=== PATIENT | male | born 1970 | race Caucasian/White ===

== ENCOUNTER 2017-12-17 10:19 | Emergency (ER) | payer BC, SELFPAY ==
[2017-12-17 10:20] VITALS: BP 158/92; PULSE 92; RESP 16; TEMP 36.2; O2SAT 97; BMI 30.3
--- NOTE | 2017-12-17 10:40 | EKG12_ITS ---
Test Reason : DIZZINESS Blood Pressure : / mmHG Vent. Rate : 082 BPM Atrial Rate : 082 BPM P-R Int : 144 ms QRS Dur : 102 ms QT Int : 392 ms P-R-T Axes : 022 007 029 degrees QTc Int : 457 ms Sinus rhythm with sinus arrhythmia with occasional Premature ventricular complexes Otherwise normal ECG Confirmed by AGUSTIN GARRETT, PADMINI ([id number]), editor school photograph SOWMYA LOPEZ ([id number]) on 12/19/2017 1:09:58 PM Referred By: ELZBIETA Confirmed By:PADMINI VELEZ MD
--- NOTE | 2017-12-17 10:44 | ED.DCSUM_ITS ---
- ER Visit Summary Date of Service: 12/17/17 Chief Complaint: Transient lightheadedness History of Present Illness: The patient is a 47 M treated for hypertension with lisinopril/hydrochlorothiazide once daily. Patient states today just felt lightheaded at work. Worse from going from a seated to a standing position and it seemed to be getting better. He denies any headache. He denies any chest pain or shortness of breath. He denies any recent head trauma. He is on no blood thinners. He denies any other neurological symptoms. No change in his vision or speech. No trouble using his arms or legs. No trouble with his balance or walking. He did take his blood pressure work and thought it was around 150s over about 99. He said normally does not run that high. Physical Examination: Well-appearing middle-age male. Vital signs are stable afebrile. Pulse ox 97% on room air no signs of hypoxia. His initial blood pressure is 158/92. He does not look septic or toxic. He is in no acute distress. He is speaking easily. H EENT exam is unremarkable. Pupils round reactive light. Extra motions intact. No facial droop. Tongue is midline. Normal speech. No signs of trauma. Neck nontender. No lymphadenopathy. Lungs clear to auscultation bilaterally. Heart regular rate and rhythm no murmur. Abdomen soft nontender. No peritoneal signs. He is moving all 4 extremities. They are neurovascularly intact. 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 Dorsi plantar flexion intact. Normal motor strength and sensation of both upper and lower extremities. Normal range of motion of both upper and lower extremities bilaterally. Neurologically is awake and alert without any focal motor or sensory deficits. NIH score is 0. Get up and ambulate without any difficulty. No ataxia. Fingertip to nose and heel to carter all within normal limits. Test Results: Negative. His blood pressures remained 150s and 160s systolically over 80s and 90s. EKG sinus rhythm rate 82 with a few PVCs but otherwise no acute abnormality. No signs of ischemia. Emergency Department Course and Treatment: His clinical exam is basically normal. With a normal neurologic exam. Obtain orthostatic vital vital signs and EKG. Clinically I do not think he needs other labs nor does he need a CT. Treatment Plan: Repeat exam at 1130 he is doing well. Exam remains normal. Patient denied discussed treatment options. He has been logging his blood pressure the last week it is been running higher than normal. For that reason we will increase his lisinopril to 1 pill twice a day. He will continue to log his blood pressures and follow-up with his primary care physician Dr. Frederick Cheema. Disposition: Discharge Impression: Transient lightheadedness resolved Acute on chronic hypertension This note was generated with [employer] dictation software. It may contain incorrect words, spelling, and punctuation that were not noted in review of the chart prior to signing ED Disposition - Plan for ED Patient: Chief Complaint: Dizziness Referrals: Frederick Cheema III, MD [Primary Care Provider] -
--- NOTE | 2017-12-17 10:46 | NURSING ---
NO OLD EKGS
[2017-12-17 10:47] VITALS: BP 152/98; BP 157/99; BP 166/93; PULSE 84; PULSE 86; PULSE 90
--- NOTE | 2017-12-17 11:37 | ED.DEP ---
ED Disposition - Plan for ED Patient: Disposition: Home or Assisted Living Chief Complaint: Dizziness Instructions: ED Hypertension Conf Out Of Control Referrals: Frederick Cheema III, MD [Primary Care Provider] - 1-2 Weeks Additional Instructions: Increase your blood pressure medication to 1 pill twice a day instead of once a day. Continue to log your blood pressures. Call and will follow up with Frederick Cheema for repeat evaluation of your blood pressure readings and medication adjustments.
[2017-12-17 11:47] VITALS: BP 150/90; PULSE 88; RESP 18; O2SAT 100
== END 2017-12-17 11:47 | disposition home or self-care (01) ==
PROVIDERS: Emergency Provider Emergency Medicine; Family Provider Family Medicine; PCP Family Medicine
DX: R42 Dizziness and giddiness (principal); I10 Essential (primary) hypertension; I49.3 Ventricular premature depolarization; Z79.899 Other long term (current) drug therapy
CPT/HCPCS: 93005; 99283

== ENCOUNTER → 2019-03-15 | Outpatient (CLI) | payer BC, SELFPAY | END | disposition home or self-care (01) | LOC: PSN 11:20 | PROVIDERS: Family Provider Family Medicine; PCP Family Medicine; Referring Provider Family Medicine; Visit Provider Family Medicine | DX: R55 Syncope and collapse (principal) | CPT/HCPCS: 93225; 93226 ==

== ENCOUNTER 2022-01-27 09:13 | Emergency (ER) | payer OTHER, SELFPAY ==
[2022-01-27 09:14] VITALS: BP 157/99; PULSE 80; RESP 17; TEMP 35.8; O2SAT 96; BMI 33.5
--- NOTE | 2022-01-27 09:27 | EDS_ITS ---
HPI HPI - GI History of Present Illness Chief Complaint: Abd Pain Informant: patient Abdominal Pain/Flank Pain Onset: Today and Hours Context: Sudden Onset Timing: Intermittent Location: RUQ Current Severity: Gone Maximum Severity: Moderate Worsened by: Nothing Relieved by: Nothing Nausea/Vomiting/Emesis GI Symptom: Negative for Nausea and Vomiting Diarrhea/Melena/Hematochezia GI Symptom: Negative for Diarrhea, Melena and Hematochezia Associated Symptoms Associated Symptoms: Negative for Dysuria, Frequency, Hematuria and Urgency Narrative Narrative: 51-year-old male history of hypertension. Today before breakfast he started having some right upper quadrant abdominal pain. Lasted about 35 to 40 minutes. And now is resolved. He denies any recent nausea, vomiting diarrhea or fever. He denies any constipation nor any melena. He denies any dysuria or hematuria. Currently is pain-free. He states he is never had this pain before. Recently has been feeling fine. He denies any weight change. He has never had any abdominal surgeries. Prior similar symptoms: No Recent Illness/Hospitalization: No PFSH PFSH Medical History Hypertension Home Medications cholecalciferol (vitamin D3) [Vitamin D3] 2,000 unit PO DAILY 12/17/17 [History Last Taken 12/17/17 06:00] cetirizine [Zyrtec] 10 mg PO DAILY 01/27/22 [History Last Taken Unknown] hydrochlorothiazide 12.5 mg PO DAILY 01/27/22 [History Last Taken Unknown] losartan 50 mg PO DAILY 01/27/22 [History Last Taken Unknown] multivitamin 1 tab PO DAILY 01/27/22 [History Last Taken Unknown] Allergy/AdvReac Type Severity Reaction Status Date / Time Penicillins [PCN] Allergy Hives Verified 12/17/17 10:20 Social History Smoking Status: Never smoker ROS ROS ED ROS Narrative Abdominal pain resolved. Review of Systems ROS Unobtainable: Denies due to encephalopathy Constitutional Constitutional ED: Denies fever(s) ENT ENT ED: Denies ear pain Cardiovascular Cardiovascular: Denies chest pain Respiratory/Chest Respiratory/Chest: Denies dyspnea Gastrointestinal Gastrointestinal: Reports abdominal pain; Denies constipation, diarrhea, melena, nausea or vomiting Genitourinary Genitourinary ED: Denies dysuria Musculoskeletal Musculoskeletal: Denies myalgias Integumentary Denies rash Neurologic Neurologic: Denies headache(s) Psychiatric Psychiatric: Denies depression Endocrine Endocrinology: Denies polyuria Allergic/Immunologic Allergic/Immunologic ED: Denies urticaria EXAM Physical Exam Narrative Exam Narrative: Noise male no acute distress. Vital signs stable afebrile. Currently pain-free. H EENT exam unremarkable. Moist with membranes. Lungs clear to auscultation. Heart regular rhythm rate about 80 no murmur. Abdomen soft nondistended normal bowel sounds no peritoneal signs. Currently is completely pain-free. There is no right upper or right lower quadrant tenderness. There is no obstruction. There is no hernia or mass. There is no pulsatile mass. Back nontender. Moving all 4 extremities. No edema. Neurologically awake and alert. Normal exam. Const Vital Signs: 01/27/22 09:14 Temperature 96.5 F L Temperature Source Temporal Pulse Rate 80 Respiratory Rate 17 Blood Pressure 157/99 H Blood Pressure Mean 118 Pulse Ox 96 Oxygen Delivery Method Room Air Positive well nourished, well developed and obese; Negative for cachectic, contractures or unkempt General Appearance ED: well developed and NAD; Negative for unkempt, cachectic, contractures or pallor Nutritional Appearance: obese; Negative for cachectic HEENT Reports moist mucous membranes normocephalic and atraumatic; Negative for trauma or tenderness Eyes PERRL and EOMs intact bilaterally General Eye ED: Negative for pale conjunctiva or scleral icterus Neck no lymphadenopathy, supple and no JVD General: Negative for tenderness Resp normal respiratory effort and No clear to auscultation bilaterally Auscultation: Negative for rales or rhonchi Cardio regular rate, regular rhythm, S1 normal heart sound, S2 normal heart sound and no murmurs GI non-tender, non-distended and no masses Inspection: Negative for abdominal distention Auscultation: normoactive bowel sounds Palpation: soft; Negative for tender, guarding, rigid or rebound tenderness present Back/Spine no CVA tenderness General Back: Negative for CVA tenderness Cervical Spine: Negative for cervical spine tenderness Thoracic Spine / Upper Back: Negative for thoracic spinal tenderness Neuro moves all extremities Sensorium / Orientation: alert, oriented to person, oriented to place and oriented to time; Negative for orientation impaired, confused, lethargic or stuporous Motor Exam: strength 5/5 throughout Psych mental status grossly normal and thought process normal Appearance: Negative for unkempt Skin no wounds General Skin Exam: Negative for jaundice or pallor Lesions: no lesions and No lesion noted Rashes: no rashes and No rashes noted MDM MDM MDM Narrative Medical decision making narrative: 51-year-old male with right upper quadrant pain that is since resolved. His abdomen is completely benign and nontender. Screening labs will be obtained. At this time he does not need any medications or imaging. We will evaluate the labs and make further decisions. Repeat exam at 10:14 AM patient doing well. Pain-free. Abdominal exam nontender and benign. Discussed all test results with patient and his . He will do outpatient follow-up with his primary care physician. If he has recurrent pain he may need a right upper quadrant ultrasound to evaluate his gallbladder. Lab Data Attestation: I reviewed the patient's lab results. Lab results narrative: CBC normal white count 9 H&H 16 and 46. Normal platelets. Electrolytes unremarkable gap of 5. BUN of 21 creatinine 1.1. Liver enzymes are normal. Lipase is normal at 82. Glucose 140. Labs: Laboratory Results - last 24 hr 01/27/22 01/27/22 09:20 09:20 WBC 9.7 RBC 5.58 Hgb 16.3 Hct 46.9 MCV 84.1 MCH 29.2 MCHC 34.8 RDW Std Deviation 35.4 RDW Coeff of Marty 11.7 Plt Count 375 MPV 8.8 Immature Gran % (Auto) 0.300 Neut % (Auto) 53.7 Lymph % (Auto) 36.8 [place] % (Auto) 5.5 Eos % (Auto) 2.7 Baso % (Auto) 1.0 Absolute Neuts (auto) 5.2 Absolute Lymphs (auto) 3.57 Nucleated RBC % 0 Sodium 140 Potassium 3.5 Chloride 108 H Carbon Dioxide 27.0 Anion Gap 5 BUN 21 H Creatinine 1.16 Estim Creat Clear Calc 87.06 Est GFR (MDRD) Af Amer 86 Est GFR (MDRD) Non-Af 71 BUN/Creatinine Ratio 18.1 Glucose 140 H Calcium 9.2 Total Bilirubin 0.40 AST 21 ALT 45 Alkaline Phosphatase 85 Total Protein 7.7 Albumin 3.8 Globulin 3.9 Albumin/Globulin Ratio 1.0 Lipase 82 Discharge Plan Triage Chief Complaint: Abd Pain ED Provider: Rd [facility] Dx/Rx/DC Orders Clinical Impression: Abdominal pain Instructions: ED Abdominal Pain Unkn Cause Male... Prescriptions: No Action cholecalciferol (vitamin D3) [Vitamin D3] 2,000 UNIT capsule 2,000 unit PO DAILY RF: 0 losartan 50 mg tablet 50 mg PO DAILY RF: 0 hydrochlorothiazide 12.5 mg capsule 12.5 mg PO DAILY RF: 0 multivitamin Tablet 1 tab PO DAILY RF: 0 cetirizine [Zyrtec] 10 mg Tablet 10 mg PO DAILY RF: 0 Primary Care Provider: Claude Padilla Referrals: Claude Padilla MD [Primary Care Provider] - As Needed Activity Restrictions/Additional Instructions: Your exam and labs today were all normal. We do not have a specific cause for your pain it may or may not have been your gallbladder. If you have recurrent symptoms, pain follow-up with your doctor you may need a right upper quadrant or gallbladder ultrasound. If you develop severe pain, fever or feel worse can return to the emergency department. Disposition Disposition: Home, Self Care
[2022-01-27 09:35] LABS: Absolute Lymphocyte Count 3.57 X10^3/uL (0.83-4.51); Absolute Neutrophil Count 5.2 X10^3/uL (2.0-7.7); Eosinophil# 0.26 X10^3/uL; Eosinophils% 2.7 % (0-5); Hematocrit 46.9 % (40-54); Hemoglobin 16.3 g/dL (13.0-16.5); Lymphocyte # 3.57 X10^3/ul (0.83-4.51); Lymphocyte % 36.8 % (19-41); Mean Corp Hgb Conc 34.8 g/dL (32-36); Mean Corpuscular Hgb 29.2 pg (27.0-32.0); Mean Corpuscular Volume 84.1 fL (80-94); Mean Platelet Vol. 8.8 fl (6.2-12.0); Monocyte# 0.53 X10^3/uL; Monocyte% 5.5 % (0-10); NRBC Flagged by Analyzer 0 % (0-5); Neutrophil # 5.21 X10^3/uL (2.7-7.7); Neutrophil % 53.7 % (47-70); Platelet Count 375 K/mm3 (150-450); RBC Distribution Width CV 11.7 % (11.6-14.6); RBC Distribution Width SD 35.4 fl (35.1-43.9); Red Blood Count 5.58 M/mm3 (4.6-6.2); White Blood Count 9.7 K/mm3 (4.4-11.0)
[2022-01-27 10:03] LABS: AST(SGOT) 21 U/L (15-37); Alanine Aminotransfer ALT/SGPT 45 U/L (16-61); Albumin, Serum 3.8 g/dL (3.2-5.0); Alkaline Phosphatase 85 U/L (45-117); Anion Gap 5 (5-15); BUN 21 mg/dL (7-18); BUN/Creat Ratio 18.1 RATIO (10-20); Calcium,Total 9.2 mg/dL (8.5-10.1); Chloride 108 mmol/L (98-107); Creatinine, Serum 1.16 mg/dL (0.70-1.30); EST Glomerular Filtration Rate 71 mL/min (>60); Est Glom Filt Rate - Afr Amer 86 mL/min (>60); Estimated Creatinine Clearance 87.06 ml/min; Globulin 3.9 g/dL (2.2-4.2); Glucose 140 mg/dL (74-106); Lipase 82 U/L (73-393); Potassium 3.5 mmol/L (3.5-5.1); Protein, Total 7.7 g/dL (6.4-8.2); Sodium Level 140 mmol/L (136-145)
[2022-01-27 10:23] VITALS: BP 130/90; PULSE 72; RESP 18; O2SAT 98
== END 2022-01-27 10:24 | disposition home or self-care (01) ==
PROVIDERS: Emergency Provider Emergency Medicine; PCP Family Medicine; Visit Provider Emergency Medicine
DX: R10.11 Right upper quadrant pain (principal); I10 Essential (primary) hypertension; Z79.899 Other long term (current) drug therapy
CPT/HCPCS: 80053; 83690; 85025; 99283

== ENCOUNTER 2022-01-31 08:21 | Emergency (ER) | payer OTHER, SELFPAY ==
[2022-01-31 08:22] VITALS: BP 152/110; PULSE 80; RESP 18; TEMP 36.5; O2SAT 99; BMI 32.3
--- NOTE | 2022-01-31 09:47 | EDS_ITS ---
HPI HPI - GI History of Present Illness Chief Complaint: Abd Pain Informant: patient Abdominal Pain/Flank Pain Onset: Today Context: Sudden Onset Timing: Continuous Quality: Aching Location: RLQ Worsened by: Nothing Relieved by: Nothing Nausea/Vomiting/Emesis GI Symptom: Positive for Nausea; Negative for Vomiting Diarrhea/Melena/Hematochezia GI Symptom: Negative for Diarrhea, Melena and Hematochezia Associated Symptoms Associated Symptoms: Negative for Dysuria, Frequency and Hematuria Narrative Narrative: Patient presents with abdominal pain that began today. Patient states it began rather suddenly. Patient states it is constant. Patient describes the pain as aching. Patient states the pain is over the right lower quadrant area. Patient states nothing makes it better nothing makes it worse. Patient states he is unable to find a position of comfort. Patient admits to nausea but denies any vomiting. Patient denies any diarrhea or melena or hematochezia. Patient denies any dysuria or hematuria. Patient admits to subjective fevers. Patient denies any back or flank pain. PFSH PFSH Medical History Hypertension Home Medications cholecalciferol (vitamin D3) [Vitamin D3] 2,000 unit PO DAILY 12/17/17 [History Last Taken 12/17/17 06:00] cetirizine [Zyrtec] 10 mg PO DAILY 01/27/22 [History Last Taken Unknown] hydrochlorothiazide 12.5 mg PO DAILY 01/27/22 [History Last Taken Unknown] losartan 50 mg PO DAILY 01/27/22 [History Last Taken Unknown] multivitamin 1 tab PO DAILY 01/27/22 [History Last Taken Unknown] hydrocodone-acetaminophen 1 tab PO Q6H PRN PRN 3 Days #10 tablet 01/31/22 [Rx Last Taken Unknown] Allergy/AdvReac Type Severity Reaction Status Date / Time Penicillins [PCN] Allergy Hives Verified 01/31/22 08:24 Social History Smoking Status: Never smoker ROS ROS ED Constitutional Constitutional ED: Reports fever(s) and subjective; Denies chills Eyes Eyes: Denies blurry vision or change in vision ENT ENT ED: Denies rhinorrhea or sore throat Cardiovascular Cardiovascular: Denies chest pain or palpitations Respiratory/Chest Respiratory/Chest: Denies cough or dyspnea Gastrointestinal Gastrointestinal: Reports abdominal pain and nausea; Denies diarrhea, melena or vomiting Genitourinary Genitourinary ED: Denies dysuria or hematuria Musculoskeletal Musculoskeletal: Denies back pain or neck pain Integumentary Denies abscess or rash Neurologic Neurologic: Denies headache(s) or weakness Allergic/Immunologic Allergic/Immunologic ED: Denies mouth swelling or urticaria EXAM Physical Exam Const Vital Signs: 01/31/22 08:22 01/31/22 11:19 Temperature 97.7 F L Temperature Source Temporal Pulse Rate 80 75 Respiratory Rate 18 18 Blood Pressure 152/110 H 161/98 H Blood Pressure Mean 124 119 Pulse Ox 99 99 Oxygen Delivery Method Nasal Cannula Room Air Positive well nourished and well developed General Appearance ED: well developed HEENT Reports moist mucous membranes Neck supple and no JVD Resp normal respiratory effort and clear to auscultation bilaterally Cardio regular rate, regular rhythm and no murmurs GI normal to inspection, nondistended, normoactive bowel sounds and non-distended Auscultation: normoactive bowel sounds Palpation: soft and tender RLQ; Negative for guarding or rebound tenderness present Extremity normal to inspection General Extremety ED: Negative for edema or tenderness General Extremity: Negative for edema Neuro oriented x3, CN's II-XII intact bilaterally and no sensory deficits noted Sensorium / Orientation: alert Motor Exam: strength 5/5 throughout Psych mental status grossly normal Skin no rashes or lesions noted MDM MDM MDM Narrative Medical decision making narrative: Patient was given IV fluids, morphine, and Zofran. CBC shows a mild leukocytosis of 12.1. Comprehensive metabolic profile shows a BUN of 20 and creatinine 1.34. Lipase was normal. Urinalysis does not show any evidence of urinary tract infection or hematuria. CT scan of the abdomen pelvis was obtained. There is a punctate calculus at the right ureterovesicular junction. There is right hydronephrosis and hydroureter. There is also some perinephric and perirenal stranding. Patient was advised of his findings. Patient was given a repeat dose of morphine. Patient was given a prescription for a short course of [place]. Patient was instructed to drink plenty of fluids. Patient was instructed to follow-up with his primary care ph ysician in 5 to 7 days. Patient understood and was agreeable with plan. All questions were answered. Lab Data Attestation: I reviewed the patient's lab results. Labs: Laboratory Results - last 24 hr 01/31/22 01/31/22 01/31/22 09:10 09:15 09:15 WBC 12.1 H RBC 5.71 Hgb 17.0 H Hct 48.0 MCV 84.1 MCH 29.8 MCHC 35.4 RDW Std Deviation 35.6 RDW Coeff of Marty 11.8 Plt Count 443 MPV 9.0 Immature Gran % (Auto) 0.500 Neut % (Auto) 76.7 H Lymph % (Auto) 16.6 L [place] % (Auto) 4.8 Eos % (Auto) 0.7 Baso % (Auto) 0.7 Absolute Neuts (auto) 9.3 H Absolute Lymphs (auto) 2.01 Nucleated RBC % 0 Sodium 137 Potassium 3.5 Chloride 104 Carbon Dioxide 29.0 Anion Gap 4 L BUN 20 H Creatinine 1.34 H Estim Creat Clear Calc 75.36 Est GFR (MDRD) Af Amer 73 Est GFR (MDRD) Non-Af 60 BUN/Creatinine Ratio 14.9 Glucose 148 H Calcium 9.7 Total Bilirubin 0.50 AST 27 ALT 49 Alkaline Phosphatase 86 Total Protein 8.2 Albumin 4.2 Globulin 4.0 Albumin/Globulin Ratio 1.0 Lipase 70 L Urine Color Yellow Urine Clarity Clear Urine pH 6.0 Ur Specific [place] 1.020 Urine Protein Negative Urine Glucose (UA) Normal Urine Ketones Negative Urine Occult Blood Negative Urine Nitrite Negative Urine Bilirubin Negative Urine Urobilinogen Normal Ur Leukocyte Esterase Negative Urine RBC 0 SEEN Urine WBC 0 SEEN Ur Squamous Epith Cells 0-5 SEEN Urine Bacteria RARE Urine Mucus 0 SEEN Radiography Diagnostic Testing: Clinical Impression(s) from Imaging Studies Abdomen/Pelvis CT 01/31/22 09:50 IMPRESSION: Punctate calculus at the right ureterovesical junction causing mild degree right hydronephrosis and hydroureter with evidence of the perinephric and perirenal ureteral stranding on the left side. Electronically Signed: Catrachito Nazario MD at 11:06 EDT , Discharge Plan Triage Chief Complaint: Abd Pain ED Provider: Weston Raines Dx/Rx/DC Orders Clinical Impression: Right distal ureteral calculus, Right lower quadrant abdominal pain Instructions: ED Kidney Stone w/ Colic Prescriptions: New hydrocodone-acetaminophen [hydrocodone-acetaminophen] 1 TABLET tablet 1 tab PO Q6H PRN PRN (Reason: Pain) 3 Days Qty: 10 RF: 0 No Action cholecalciferol (vitamin D3) [Vitamin D3] 2,000 UNIT capsule 2,000 unit PO DAILY RF: 0 losartan 50 mg tablet 50 mg PO DAILY RF: 0 hydrochlorothiazide 12.5 mg capsule 12.5 mg PO DAILY RF: 0 multivitamin Tablet 1 tab PO DAILY RF: 0 cetirizine [Zyrtec] 10 mg Tablet 10 mg PO DAILY RF: 0 Primary Care Provider: Claude Padilla Referrals: Brandin Almendarez MD [STAFF PHYSICIAN] - 5-7 Days Claude Padilla MD [Primary Care Provider] - 3-5 Days Disposition Disposition: Home, Self Care
--- NOTE | 2022-01-31 09:50 | CT_ITS ---
STUDY: CT ABDOMEN AND PELVIS WITHOUT CONTRAST REASON FOR EXAM: Male, 51 years old. Right sided abdominal pain since this morning. RADIATION DOSAGE (If Supplied By Facility): CTDIvol = ( 18.52 ) mGy, DLP = ( 1012.12 ) mGycm TECHNIQUE: Transaxial images were obtained from the dome of the diaphragm to the symphysis pubis without oral contrast, and without intravenous contrast. Sagittal and coronal images were reconstructed. Individualized dose optimization techniques were used for this CT. COMPARISON: None. FINDINGS: The visualized lung bases are unremarkable. The visualized portions of the heart are within normal limits. Normal liver. Normal gallbladder and extrahepatic biliary system. Normal spleen. Normal pancreas. Normal bilateral adrenal glands. Right perinephric and periureteric stranding. Mild degree of right hydronephrosis and hydroureter down to the right ureterovesical junction. A punctate calculus is seen at that site. Normal left kidney. There is a small hiatal hernia. Normal small intestine. Normal colon. The appendix is visualized and appears normal. There is scattered atherosclerotic calcification of the abdominal aorta, without a demonstrated aneurysm. Normal inferior vena cava. Normal retroperitoneum. Normal urinary bladder. There are prostatic calcifications. Normal abdominal wall. Normal osseous structures. CT/Abdomen/Pelvis without Cont IMPRESSION: Punctate calculus at the right ureterovesical junction causing mild degree right hydronephrosis and hydroureter with evidence of the perinephric and perirenal ureteral stranding on the left side. Electronically Signed: Catrachito Nazario MD at 11:06 EDT ,
[2022-01-31] MEDS: Ondansetron 4 MG/2 ML Vial IV (10:12)
[2022-01-31] MEDS: 0.9% Normal Saline 1,000 ML 1000 ML IV (10:12)
[2022-01-31] MEDS: Morphine 4 MG/ML Syringe IV ×2 (10:12→11:16)
[2022-01-31 10:28] LABS: Absolute Lymphocyte Count 2.01 X10^3/uL (0.83-4.51); Absolute Neutrophil Count 9.3 X10^3/uL (2.0-7.7); Basophil# 0.09 X10^3/uL; Basophil% 0.7 % (0-1); Eosinophil# 0.09 X10^3/uL; Eosinophils% 0.7 % (0-5); Lymphocyte # 2.01 X10^3/ul (0.83-4.51); Lymphocyte % 16.6 % (19-41); Mean Corp Hgb Conc 35.4 g/dL (32-36); Mean Corpuscular Hgb 29.8 pg (27.0-32.0); Mean Corpuscular Volume 84.1 fL (80-94); Monocyte# 0.58 X10^3/uL; Monocyte% 4.8 % (0-10); NRBC Flagged by Analyzer 0 % (0-5); Neutrophil # 9.28 X10^3/uL (2.7-7.7); Neutrophil % 76.7 % (47-70); Platelet Count 443 K/mm3 (150-450); RBC Distribution Width CV 11.8 % (11.6-14.6); RBC Distribution Width SD 35.6 fl (35.1-43.9); Red Blood Count 5.71 M/mm3 (4.6-6.2); White Blood Count 12.1 K/mm3 (4.4-11.0)
[2022-01-31 10:29] LABS: Mucous, Urine 0 SEEN /hpf (<or=2+); Red Blood Cells-Urine 0 SEEN /hpf (0-5); White Blood Cells 0 SEEN /hpf (0-5)
[2022-01-31 10:33] LABS: Color, Urine Yellow (Yellow); Glucose, Dipstick Normal (Normal); Ketone-Dipstick Negative (Negative); Leukocyte Esterase-Dipstick Negative /ul (Negative); Nitrite-Dipstick Negative (Negative); Occult Blood-Urine Negative /ul (Negative); Protein-Dipstick Negative (Negative); Urine Bilirubin Dipstick Negative (Negative); Urine Clarity Clear (Clear); Urine Urobilinogen Normal (Normal)
[2022-01-31 10:43] LABS: Bacteria RARE /hpf (None Seen); Squamous Epithelial Cells - UA 0-5 SEEN /hpf (0-5)
[2022-01-31 11:00] LABS: AST(SGOT) 27 U/L (15-37); Alanine Aminotransfer ALT/SGPT 49 U/L (16-61); Albumin, Serum 4.2 g/dL (3.2-5.0); Alkaline Phosphatase 86 U/L (45-117); Anion Gap 4 (5-15); BUN 20 mg/dL (7-18); BUN/Creat Ratio 14.9 RATIO (10-20); Calcium,Total 9.7 mg/dL (8.5-10.1); Chloride 104 mmol/L (98-107); Creatinine, Serum 1.34 mg/dL (0.70-1.30); EST Glomerular Filtration Rate 60 mL/min (>60); Est Glom Filt Rate - Afr Amer 73 mL/min (>60); Estimated Creatinine Clearance 75.36 ml/min; Glucose 148 mg/dL (74-106); Lipase 70 U/L (73-393); Potassium 3.5 mmol/L (3.5-5.1); Protein, Total 8.2 g/dL (6.4-8.2); Sodium Level 137 mmol/L (136-145)
[2022-01-31 11:19] VITALS: BP 161/98; PULSE 75; RESP 18; O2SAT 99
== END 2022-01-31 11:49 | disposition home or self-care (01) ==
PROVIDERS: Emergency Provider Emergency Medicine; PCP Family Medicine; Visit Provider Emergency Medicine
DX: N13.2 Hydronephrosis with renal and ureteral calculous obstruction (principal); N13.4 Hydroureter; I10 Essential (primary) hypertension; Z79.899 Other long term (current) drug therapy
CPT/HCPCS: 74176; 80053; 81001; 83690; 85025; 96361; 96374; 96375; 96376; 99283; J7030; A4216; J2405

== ENCOUNTER → 2022-02-14 | Outpatient (CLI) | payer OTHER, SELFPAY ==
--- NOTE | 2022-02-14 15:30 | RAD_ITS ---
STUDY: X-RAY - ABDOMEN/PELVIS REASON FOR EXAM: Male, 51 years old. CALCULUS OF KIDNEY TECHNIQUE: AP, 3 images. COMPARISON: None. FINDINGS: No definite radiopaque calculi demonstrated in the region of the kidneys or expected course of the ureters. Bowel gas pattern is normal. Moderate amount of stool in rectosigmoid colon. RAD/Abdomen Single View IMPRESSION: No definite radiopaque urinary tract calculi identified. Electronically Signed: Monserrat Hunter MD at 3:48 EDT ,
== END | disposition home or self-care (01) ==
LOC: RAD 15:19
PROVIDERS: PCP Family Medicine; Referring Provider Urology; Visit Provider Urology
DX: N20.0 Calculus of kidney (principal)
CPT/HCPCS: 74018

== ENCOUNTER → 2023-01-10 | Outpatient (CLI) | payer OTHER, SELFPAY ==
--- NOTE | 2023-01-10 10:34 | RAD_ITS ---
STUDY: X-RAY CHEST REASON FOR EXAM: Male, 52 years old. Fever and cough TECHNIQUE: PA and lateral views of the chest. COMPARISON: None. FINDINGS: The lungs are clear and expanded. There is no demonstrated pleural abnormality. Normal size heart. Normal mediastinum and mya. Normal visualized pulmonary arteries. Normal visualized aortic arch and descending thoracic aorta. Normal visualized thoracic spine. Normal visualized ribs, clavicles, and shoulders. There is no demonstrated abnormality of the visualized soft tissue structures of the upper abdomen. RAD/Chest PA and Lateral IMPRESSION: Normal x-ray examination of the chest. Electronically Signed: Ismael Urrutia MD at 12:03 EDT ,
== END | disposition home or self-care (01) ==
PROVIDERS: PCP Family Medicine; Visit Provider Internal Medicine Pulmonary Disease
DX: R91.8 Other nonspecific abnormal finding of lung field (principal)
CPT/HCPCS: 71046

== ENCOUNTER 2025-01-21 07:10 | Emergency (ER) | payer BC, SELFPAY ==
[2025-01-21 07:11] VITALS: BP 159/97; PULSE 86; RESP 16; TEMP 36.5; O2SAT 97; BMI 34.9
--- NOTE | 2025-01-21 07:19 | EX.ED.DYSGE1 ---
HPI History of Present Illness Chief Complaint: Dizziness Narrative Narrative: Patient is a 54-year-old male who was waking up this morning and had a hard time getting out of bed secondary to dizziness. Patient felt lightheaded, dizzy, no vertigo. Patient is not diabetic. Patient and daughter at bedside. Patient felt like he could not get out of bed this morning, he tried several times. Patient had difficulty getting to the bathroom to urinate. Patient had no fall. Patient's had no recent head injury. Patient has no chest pain or shortness of breath. No abdominal pain nausea or vomiting. No other acute complaints. Patient is not diabetic. No cardiac history. Patient just saw his PCP several weeks ago and had a normal bill of health with no acute findings. [facility] Medical History Hypertension Home Medications ?Medication ?Instructions ?Recorded ?Last Taken ?Type cholecalciferol (vitamin D3) 50 2,000 unit PO DAILY 12/17/17 12/17/17 06:00 History mcg (2,000 unit) capsule (Vitamin D3) cetirizine 10 mg tablet (Zyrtec) 10 mg PO DAILY 01/27/22 Unknown History hydrochlorothiazide 12.5 mg capsule 12.5 mg PO DAILY 01/27/22 Unknown History multivitamin 1 tab PO DAILY 01/27/22 Unknown History losartan 100 mg tablet 100 mg PO DAILY 01/21/25 Unknown History Allergy/AdvReac Type Severity Reaction Status Date / Time Penicillins (PCN) Allergy Hives Verified 01/21/25 07:16 Social History Smoking Status: Never smoker ROS ROS ED ROS Narrative REVIEW OF SYSTEMS: Unless otherwise stated in this report the patient's positive and negative responses for review of systems for constitutional, eyes, ENT, cardiovascular, respiratory, gastrointestinal, neurological, , musculoskeletal, and integument systems and related systems to the presenting problem are either stated in the history of present illness or were not pertinent or were negative for the symptoms and/or complaints related to the presenting medical problem. EXAM Physical Exam Narrative Exam Narrative: Vital signs reviewed and patient is not hypoxic. Patient is orthostatic positive General: The patient appears well and in no apparent distress. Patient is resting comfortably on cart. Not toxic, lethargic, or listless. Skin: Warm, dry, no pallor noted. There is no rash noted. Head: Normocephalic, atraumatic, no carotid bruits. Eye: Normal conjunctiva, no drainage, EOMI. PERRL. Ears, Nose, Mouth, and Throat: oral mucosa is moist. Nares patent. Mouth without vesicles. Cardiovascular: Regular Rate and Rhythm, no murmurs, gallops, or rubs Respiratory: Patient is in no distress, no accessory muscle use, lungs are clear to auscultation, no wheezing, rales or rhonchi Back: non-tender, no CVA tenderness bilaterally to percussion. NO CTLS midline or paraspinal tenderness to palpation. GI: Soft, no tenderness to palpation, no masses appreciated. No rebound, guarding, or rigidity noted. Musculoskeletal: The patient has full range of motion of all extremities and joints with no difficulty. Patient has no motor, no sensory deficits. Neurological: A&O x4, normal speech, no focal neurological deficits. NIH 0 Psychiatric: Cooperative Const Vital Signs: 01/21/25 07:11 01/21/25 07:31 01/21/25 07:31 Temperature 97.7 F L Temperature Source Oral Pulse Rate 86 90 Pulse Rate [Lying] Pulse Rate [Sitting (for 1 minute prior to obtaining)] Pulse Rate [Standing (for 1 minute prior to obtaining)] Respiratory Rate 16 18 Blood Pressure 159/97 H 144/91 H Blood Pressure [Lying] Blood Pressure [Sitting (for 1 minute prior to obtaining)] Blood Pressure [Standing (for 1 minute prior to obtaining)] Blood Pressure Mean 117 108 Blood Pressure Mean [Lying] Blood Pressure Mean [Sitting (for 1 minute prior to obtaining)] Blood Pressure Mean [Standing (for 1 minute prior to obtaining)] Pulse Ox 97 98 98 Oxygen Delivery Method Room Air Room Air Room Air 01/21/25 07:31 01/21/25 08:11 01/21/25 08:56 Temperature Temperature Source Pulse Rate 84 78 Pulse Rate [Lying] 85 Pulse Rate [Sitting (for 1 minute prior to obtaining)] 91 Pulse Rate [Standing (for 1 minute prior to obtaining)] 98 Respiratory Rate 19 H 19 H Blood Pressure 145/86 H 135/80 H Blood Pressure [Lying] 166/82 H Blood Pressure [Sitting (for 1 minute prior to obtaining)] 132/100 H Blood Pressure [Standing (for 1 minute prior to obtaining)] 144/91 H Blood Pressure Mean 105 98 Blood Pressure Mean [Lying] 110 Blood Pressure Mean [Sitting (for 1 minute prior to obtaining)] 110 Blood Pressure Mean [Standing (for 1 minute prior to obtaining)] 108 Pulse Ox 97 98 Oxygen Delivery Method Room Air Room Air 01/21/25 09:18 Temperature 98.2 F Temperature Source Pulse Rate 79 Pulse Rate [Lying] Pulse Rate [Sitting (for 1 minute prior to obtaining)] Pulse Rate [Standing (for 1 minute prior to obtaining)] Respiratory Rate 19 H Blood Pressure 137/78 H Blood Pressure [Lying] Blood Pressure [Sitting (for 1 minute prior to obtaining)] Blood Pressure [Standing (for 1 minute prior to obtaining)] Blood Pressure Mean 97 Blood Pressure Mean [Lying] Blood Pressure Mean [Sitting (for 1 minute prior to obtaining)] Blood Pressure Mean [Standing (for 1 minute prior to obtaining)] Pulse Ox 98 Oxygen Delivery Method MDM MDM MDM Narrative Medical decision making narrative: Patient is orthostatic positive. Patient seen and examined: Patient is lightheaded dizzy, intermittent vertigo, not currently having vertigo at this time. Minimal vertigo at home, more lightheaded dizzy passed out. Patient however will have cardiac side effects stroke reevaluation patient has no acute signs or symptoms of stroke at this time. No headache or neck pain. Differential diagnosis includes but is not limited to: Headache, intracranial hemorrhage, stroke, ND, acute coronary syndrome, dehydration, electrolyte abnormality. Relevant laboratory interpretation: Patient orthostatics were positive. Radiological studies: CT of the brain showed no acute findings. Chest x-ray negative. Reevaluation: Patient felt much better after 1 L of IV fluid. Patient admitted to the bathroom well without difficulty Social barriers to healthcare: There are no food insecurities, there is no issue with transportation, there are no insurance barriers Disposition: Patient will be discharged. Patient will increase fluids at home, Gatorade, Powerade, water. Diagnosis: Orthostatic hypotension, dehydration, lightheadedness Lab Data Attestation: I reviewed the patient's lab results. Labs: Laboratory Results - last 24 hr 01/21/25 01/21/25 07:20 07:23 WBC 10.3 RBC 5.57 Hgb 16.3 Hct 46.2 MCV 82.9 MCH 29.3 MCHC 35.3 RDW Std Deviation 36.4 RDW Coeff of Marty 12.0 Plt Count 383 MPV 8.6 Immature Gran % (Auto) 0.400 Neut % (Auto) 59.3 Lymph % (Auto) 29.8 [place] % (Auto) 6.5 Eos % (Auto) 2.9 Baso % (Auto) 1.1 H Absolute Neuts (auto) 6.1 Absolute Lymphs (auto) 3.07 Nucleated RBC % 0 PT 13.8 INR 1.0 APTT 30.1 Sodium 142 Potassium 3.3 Chloride 104 Carbon Dioxide 25.3 Anion Gap 13 BUN 17 Creatinine 1.10 Estim Creat Clear Calc 106.73 Est GFR (MDRD) Non-Af 81 BUN/Creatinine Ratio 15.3 Glucose 135 H Calcium 9.2 Troponin T High Sens < 6 POC Glucose 137 H Radiography Diagnostic Testing: Clinical Impression(s) from Imaging Studies Brain CT 01/21/25 07:31 IMPRESSION: 1. Generalized brain atrophy. 2. No acute intracranial hemorrhage, midline shift or mass effect. If symptoms persist, further evaluation with MRI is recommended. 3. Mild small vessel ischemic/degenerative changes. Reading Location: [facility] EKG Initial EKG: Attestation: I personally reviewed and interpreted this EKG as follows: (EKG interpretation. Normal sinus rhythm 85 beats a minute. No axis deviation. No acute ST elevation, no acute ectopy. QTc of 464 compared to old EKG on Dec 17, 2017, no acute changes on today's EKG) Discharge Plan Triage Chief Complaint: Dizziness ED Provider: Hay Drew Dx/Rx/DC Orders Instructions: ED Dehydration (Adult), ED Hypotension, Orthostatic Prescriptions: No Action cholecalciferol (vitamin D3) [Vitamin D3] 2,000 UNIT capsule 2,000 unit PO DAILY hydrochlorothiazide 12.5 mg capsule 12.5 mg PO DAILY multivitamin Tablet 1 tab PO DAILY cetirizine [Zyrtec] 10 mg Tablet 10 mg PO DAILY losartan 100 mg tablet 100 mg PO DAILY Stand Alone Forms: Work / School Excuse Primary Care Provider: Claude Padilla Referrals: Claude Padilla MD [[facility]] - Activity Restrictions/Additional Instructions: Patient was orthostatic positive. Increase fluids at home, Gatorade, Powerade, water. Work note given today. Follow-up with PCP for any other acute concerns. Print Language: Bruneian Disposition Disposition: Home, Self Care Discharge Date/Time: 01/21/25 09:23
[2025-01-21 07:31] VITALS: BP 132/100; BP 144/91; BP 166/82; PULSE 85; PULSE 90; PULSE 91; PULSE 98; RESP 18; O2SAT 98
--- NOTE | 2025-01-21 07:31 | EKG12_ITS ---
Test Reason : DIZZY Blood Pressure : */* mmHG Vent. Rate : 85 BPM Atrial Rate : 85 BPM P-R Int : 156 ms QRS Dur : 104 ms QT Int : 390 ms P-R-T Axes : 19 -3 38 degrees QTcB Int : 464 ms Normal sinus rhythm Normal ECG Confirmed by JOSE GARRETT, VASYL ([id number]), technical editor ALMA DELIA BECKETT ([id number]) on 01/24/2025 9:15:09 AM Referred By: SERJIO Confirmed By: VASYL GARCIA MD
--- NOTE | 2025-01-21 07:31 | CT_ITS ---
EXAM: CT Head Without Intravenous Contrast CLINICAL INDICATION: NEURO DEFICIT, ACUTE, STROKE SUSPECTED TECHNIQUE: Axial computed tomography images of the head/brain without intravenous contrast. This CT exam was performed using one or more of the following dose reduction techniques: automated exposure control, adjustment of the mA and/or kV according to patient size, and/or use of iterative reconstruction technique. COMPARISON: No relevant prior studies available. FINDINGS: BRAIN AND EXTRA-AXIAL SPACES: The cerebral and cerebellar sulci are prominent consistent with brain atrophy. No acute intracranial hemorrhage, midline shift or mass effect. If symptoms persist, further evaluation with MRI is recommended. Mild areas of decreased attenuation in the deep cerebral white matter are consistent with mild small vessel ischemic/degenerative changes. BONES/JOINTS: Unremarkable. No acute fracture. SOFT TISSUES: Unremarkable. SINUSES: Unremarkable as visualized. No acute sinusitis. MASTOID AIR CELLS: Unremarkable as visualized. No mastoid effusion. CT/STROKE Brain/Head without Cont IMPRESSION: 1. Generalized brain atrophy. 2. No acute intracranial hemorrhage, midline shift or mass effect. If symptoms persist, further evaluation with MRI is recommended. 3. Mild small vessel ischemic/degenerative changes. [facility]
[2025-01-21 07:38] LABS: Bedside Glucose 137 mg/dL (74-106)
[2025-01-21] MEDS: 0.9% Normal Saline (1000mL) 1,000 ML 999 ML IV (07:44)
[2025-01-21 07:48] LABS: Absolute Lymphocyte Count 3.07 X10^3/uL (0.83-4.51); Absolute Neutrophil Count 6.1 X10^3/uL (2.0-7.7); Basophil# 0.11 X10^3/uL; Basophil% 1.1 % (0-1); Eosinophils% 2.9 % (0-5); Hematocrit 46.2 % (40-54); Hemoglobin 16.3 g/dL (13.0-16.5); Lymphocyte # 3.07 X10^3/ul (0.83-4.51); Lymphocyte % 29.8 % (19-41); Mean Corp Hgb Conc 35.3 g/dL (32-36); Mean Corpuscular Hgb 29.3 pg (27.0-32.0); Mean Corpuscular Volume 82.9 fL (80-94); Mean Platelet Vol. 8.6 fl (6.2-12.0); Monocyte# 0.67 X10^3/uL; Monocyte% 6.5 % (0-10); NRBC Flagged by Analyzer 0 % (0-5); Neutrophil # 6.12 X10^3/uL (2.7-7.7); Neutrophil % 59.3 % (47-70); Platelet Count 383 K/mm3 (150-450); RBC Distribution Width SD 36.4 fl (35.1-43.9); Red Blood Count 5.57 M/mm3 (4.6-6.2); White Blood Count 10.3 K/mm3 (4.4-11.0)
[2025-01-21 08:11] VITALS: BP 145/86; PULSE 84; RESP 19; O2SAT 97
[2025-01-21 08:31] LABS: Troponin T High Sensitivity < 6 ng/L (<=22)
[2025-01-21 08:50] LABS: Prothrombin Time (Protime)PT. 13.8 SECONDS (11.7-14.9)
[2025-01-21 08:51] LABS: Partial Thromboplast Time 30.1 Seconds (24.1-36.2)
[2025-01-21 08:54] LABS: Anion Gap 13 (5-15); BUN 17 mg/dL (4-19); BUN/Creat Ratio 15.3 RATIO (10-20); Calcium,Total 9.2 mg/dL (7.6-11.0); Carbon Dioxide 25.3 mmol/L (21.0-32.0); Chloride 104 mmol/L (98-108); EST Glomerular Filtration Rate 81 (>60); Estimated Creatinine Clearance 106.73 ml/min (50-250); Glucose 135 mg/dL (70-99); Potassium 3.3 mmol/L (3.3-5.1); Sodium Level 142 mmol/L (133-145)
[2025-01-21 08:56] VITALS: BP 135/80; PULSE 78; RESP 19; O2SAT 98
[2025-01-21 09:18] VITALS: BP 137/78; PULSE 79; RESP 19; TEMP 36.8; O2SAT 98
== END 2025-01-21 09:23 | disposition home or self-care (01) ==
PROVIDERS: Emergency Provider Emergency Medicine; PCP Family Medicine; Visit Provider Emergency Medicine
DX: R42 Dizziness and giddiness (principal); I10 Essential (primary) hypertension; Z79.899 Other long term (current) drug therapy
CPT/HCPCS: 70450; 80048; 82962; 84484; 85025; 85610; 85730; 93005; 96360; 99285; A4216